=== PATIENT | male | born 1970 | race Hispanic/Latino ===

== ENCOUNTER 2021-07-24 06:26 | Outpatient (CLI) | payer BC ==
[2021-07-24 11:38] LABS: Hemoglobin A1c 10.3 % (4.0-6.0)
[2021-07-24 11:40] LABS: Cardiac Risk 5.2 (Less than 4.5)
== END 2021-07-24 06:27 | disposition home or self-care (01) ==
LOC: NAV LAB 06:26
PROVIDERS: ATTEND Nurse Practitioner Family
DX: E78.5 Hyperlipidemia, unspecified (principal); E11.65 Type 2 diabetes mellitus with hyperglycemia
CPT/HCPCS: 36415; 80061; 83036

== ENCOUNTER 2025-05-03 08:11 | Outpatient (CLI) | payer BC | END 2025-05-03 08:12 | disposition home or self-care (01) | LOC: NAV RAD 08:11 | PROVIDERS: ATTEND Nurse Practitioner Family | DX: M54.42 Lumbago with sciatica, left side (principal); M47.816 Spondylosis without myelopathy or radiculopathy, lumbar region | CPT/HCPCS: 72100 ==